=== PATIENT | female | born 1985 | race American Indian/Alaskan Native ===

== ENCOUNTER 2017-02-10 10:15 | Outpatient (CLI) | payer BC ==
--- NOTE | 2017-02-10 11:32 | XRay Report ---
RIGHT KNEE, 4 views: History: Right knee pain. The bony architecture is intact without evidence of fracture or dislocation. No significant soft tissue abnormality is seen. IMPRESSION: Normal right knee.
== END 2017-02-10 10:16 | disposition home or self-care (01) ==
LOC: SPVIMAG 10:15
PROVIDERS: ATTEND Orthopaedic Surgery
DX: M25.561 Pain in right knee (principal)